=== PATIENT | male | born 1990 | race Caucasian/White ===

== ENCOUNTER 2018-07-16 13:57 | Inpatient (IN) ==
[2018-07-16] MEDS ORDERED: Naloxone 0.4 MG/ML INJ IVP PRN (16:42)
--- NOTE | 2018-07-16 16:55 | Internal Med History&Physical ---
Date of Encounter: 07/16/18 Time of Encounter: 16:52 Internal Medicine - H&P: HPI Chief complaint: Shortness of breath Admitted From: Emergency Dept History of present illness: Mr. MISTRY is a 27 year old male patient with no significant past medical history who went to the ER at [facility] with complaints of shortness of breath along with worsening cough. He reports that symptoms have been going on for a week but became more prominent over the past couple of days. He denies any fevers or chills. He has some chest pain due to frequent coughing. He does have some phlegm. No hemoptysis. No prior episodes of hospitalization. Brendan navas is a chronic smoker. He does not have any sick contacts but his father has chronic sinusitis. In the ER, he was noted to be persistently hypoxic. As such he was transferred here for further evaluation. Past Med Surg Social Fam HX - Past Medical History Additional medical history: smoker Psychiatric history: no psych history - Past Surgical History Surgical History: no surgical history - Social History Smoking Status: Current every day smoker Packs per day: 1/2 Smokeless Tobacco Status: No Alcohol use: none Drug use: none - Additional Family History Additional family history: Family history reviewed and found to be noncontributory at this time All Systems PM: A 10-system review of systems was performed and is negative for pertinent findings except as documented above in the HPI. - Constitutional Constitutional: lethargy, malaise, no chills, no fever(s), no night sweats - EENT Eyes: no change in vision, no discharge, no pain, no photophobia Ears: no ear discharge, no ear pain, no tinnitus Nose, mouth and throat: no dysphagia, no nasal discharge, no neck pain, no sore throat - Cardiovascular Cardiovascular ROS IM: dyspnea, no chest pain, no diaphoresis, no lightheadedness, no palpitations, no syncope - Respiratory Respiratory: cough, dyspnea, no wheezing, no excessive phlegm production - Gastrointestinal Gastrointestinal: no abdominal pain, no diarrhea, no hematemesis, no hematochezia, no melena, no nausea, no vomiting - Musculoskeletal Musculoskeletal ROS IM: no numbness, no tingling - Integumentary Integumentary IM: no rash, no unusual bruising - Neurological Neurological ROS: no confusion, no convulsions, no focal weakness, no numbness, no tingling, no tremor(s) - Hematologic/Lymphatic Hematologic/Lymphatic: no easy bruising - Constitutional Vitals: Pulse Resp BP Pulse Ox 88 18 143/86 95 07/16/18 15:46 07/16/18 15:46 07/16/18 15:46 07/16/18 16:01 General appearance: Present: cooperative, A&O X 3, pleasant, answers questions appropriately Exam: Moderate distress - Respiratory Respiratory exam: Present: prolonged expiratory phase, wheezes. Absent: accessory muscle use, rales, rhonchi - Cardiovascular Cardiovascular exam: Present: RRR, +S1, +S2. Absent: diastolic murmur, gallop, rubs, systolic murmur - GI/Abdominal GI/Abdominal exam: Present: normal bowel sounds, soft, no peritoneal signs. Absent: distended, tenderness - Extremities Exam Extremities exam: Present: warm, radial pulses palpable and symmetrical. Absent: calf tenderness, cyanotic, pedal edema - Neurological Exam Neurological exam: Present: alert, oriented X3, no focal deficits. Absent: facial droop, speech deficit Internal Med - H&P Results - Labs Labs: Sodium 139 potassium 3.9 chloride 103, bicarbonate 27, BUNs and 14, creatinine 1.09, glucose 138 WBC 11.3, hemoglobin 16.5, platelets 279 - ABG Interpretation ABG results: PH 7.46, PCO2 34, PO2 53 Interpretation: respiratory alkalosis - EKG Data -: EKG Interpreted by Myself EKG shows normal: sinus rhythm - Impressions Reviewed CT angiogram. Patient has bilateral groundglass opacities but more prominent consolidation in the right lower lobe concerning for atypical pneumonia - Assessment and Plan (1) Acute respiratory failure with hypoxia Current Visit: Yes Status: Acute Assessment and plan: Patient with acute hypoxia. Due to COPD exacerbation and atypical pneumonia. Will treat with O2 supplementation while treating underlying causes of pneumonia. (2) Pneumonia Current Visit: Yes Status: Suspected Assessment and plan: CT angiogram does show right lower lobe infiltrate. No PE. We will treat with antibiotics. Check respiratory infection panel. Check Legionella, Mycoplasma and streptococcal antigens. High risk for complications. Qualifiers: Pneumonia type: due to Pneumococcus Laterality: right Lung location: lower lobe of lung Qualified Code(s): J13 - Pneumonia due to Streptococcus pneumoniae (3) COPD exacerbation Current Visit: Yes Status: Acute Assessment and plan: No previous history of COPD but patient is a chronic smoker. Will treat him for possible COPD exacerbation as he has bilateral wheezing. IV steroids, bronchodilators. O2 supplementation. (4) Tobacco abuse Current Visit: Yes Status: Chronic Assessment and plan: Chronic tobacco abuse. Counseled about cessation. Patient is willing to quit. - Time Spent With Patient Total time spent is greater than 50% in coordination of care (as documented) at patient's floor/unit and/or counseling patient:
[2018-07-16] MEDS ORDERED: Ipratropium/Albuterol Neb 3 ML ONE (16:56)
[2018-07-16] MEDS: Ipratropium/Albuterol Neb 3 ML IH SCH ×3 (17:04→23:58)
[2018-07-16] MEDS ORDERED: Furosemide 20 MG/2 ML VIAL IVP ONE (17:36)
[2018-07-16] MEDS ORDERED: Ringers Solution, Lactated 1,000 ML IVC SCH (17:45)
[2018-07-16] MEDS ORDERED: 0.9 % Sodium Chloride Mini Bag 100 ML ONE (18:24)
[2018-07-16] MEDS: MethylPREDNISolone 40 MG/ML VIAL IVP SCH (18:27)
[2018-07-16] MEDS: Doxycycline 100 MG in 0.9 % Sodium Chloride Mini Bag 100 ML IVPB SCH (18:27)
[2018-07-16] MEDS: cefTRIAXone 2,000 MG in 0.9 % Sodium Chloride Mini Bag 100 ML IVPB SCH (18:28)
[2018-07-16 18:41] LABS: Adenovirus Not Detected (Not Detect); Bordetella Pertussis Not Detected (Not Detect); Chlamydophila pneumoniae Not Detected (Not Detect); Coronavirus 229E Not Detected (Not Detect); Coronavirus HKU1 Not Detected (Not Detect); Coronavirus NL63 Not Detected (Not Detect); Coronavirus OC43 DETECTED (Not Detect); Human Metapneumovirus Not Detected (Not Detect); Human Rhinovirus/Enterovirus Not Detected (Not Detect); Influenza A Subtype 2009 H1 Not Detected (Not Detect); Influenza A Untypeable Not Detected (Not Detect); Influenza B Not Detected (Not Detect); Mycoplasma pneumoniae Not Detected (Not Detect); Parainfluenza Virus 1 Not Detected (Not Detect); Parainfluenza Virus 2 Not Detected (Not Detect); Parainfluenza Virus 3 Not Detected (Not Detect); Parainfluenza Virus 4 Not Detected (Not Detect); Respiratory Syncytial Virus Not Detected (Not Detect)
--- NOTE | 2018-07-16 18:44 | Pulmonology Consult Note ---
Date of Encounter: 07/16/18 Time of Encounter: 17:00 Assessment and Plan (1) Acute respiratory failure with hypoxia Current Visit: Yes Status: Acute Patient presenting with acute respiratory failure with hypoxia pulmonary embolism was ruled out patient has a subtle groundglass opacities differential diagnosis can be due to congestive heart failure which is very unlikely, most likely cause would be atypical bacterial pneumonia versus viral pneumonia. The low likelihood causes like inflammatory pneumonias like acute eosinophilic pneumonia does not look like the pattern in the CT chest. We will do an atypical/viral workup. Patient might have small airway disease because of chronic smoking will put him on bronchodilators steroids and atypical antibiotic coverage. (2) COPD exacerbation Current Visit: Yes Status: Acute Patient has not been evaluated formally for COPD but there was some subtle air- trapping and CT chest was likely early stage with small airway disease. We will treat her COPD exacerbation with bronchodilators steroids and antibiotics. We will try a small dose of Lasix. To trend troponins and check BNP. (3) Tobacco abuse Current Visit: Yes Status: Chronic Counseled about the importance of smoking cessation some the smoking in induce interstitial lung disease like the desquamative . interstitial pneumonitis can present like this (4) Pneumonia Current Visit: Yes Status: Suspected Patient has exposure to rabbits highly doubt it is rapid fever it can cause pneumonia with a subtle groundglass opacities highly doubt it but will cover for atypical coverage with doxycycline and ceftriaxone. We will put him on steroids will do an atypical workup. If the BNP is high we will check an echocardiogram. Qualifiers: Pneumonia type: due to Pneumococcus Laterality: right Lung location: lower lobe of lung Qualified Code(s): J13 - Pneumonia due to Streptococcus pneumoniae History of Present Illness Consult date: 07/16/18 Requesting physician: Jamey Mccabe Chief complaint: Shortness of breath History of present illness: 27-year-old male with past medical history nothing significant except for chronic smoking is been smoking for 5 years according to him patient never been in shortness of breath previously is all started after exposure to a sick contact with father in law progressive shortness of breath he was evaluated in the [facility] ruled out for pulmonary embolism I reviewed the CT chest had some subtle groundglass opacities no evidence of consolidation no evidence some in any interstitial pattern, no radiological evidence suggestive of sarcoidosis or any organizing pneumonia or any hypersensitivity pneumonitis patient Except for smoking denies any illicit drug abuse denies any snorting cocaine or other substances patient is not exposed to exotic birds but has a pet rabbit. Patient also not exposed to any formal animals denies any exposed to any mold in the house. Patient works in [employer]. No significant work exposure. Patient denies any symptoms pertaining to any rheumatological disorder. Patient is profoundly hypoxic requiring 10 L of nasal cannula to keep saturation around 91-92%. Pulmonary was consulted for evaluation of acute hypoxic respiratory failure Past Med Surg Social Fam HX - Past Medical History Additional medical history: smoker Psychiatric history: no psych history - Past Surgical History Surgical History: no surgical history - Social History Smoking Status: Current every day smoker Packs per day: 1/2 Smokeless Tobacco Status: No Alcohol use: none Drug use: none Medications and Allergies Allergy/AdvReac Type Severity Reaction Status Date / Time No Known Allergies Allergy Verified 07/16/18 17:31 All Systems: The remainder of the systems were reviewed and are negative Physical Examination Vital Signs: Vital Signs, Last 4 Hours Pulse Resp BP Pulse Ox 07/16/18 17:04 16 91 07/16/18 16:01 95 07/16/18 15:46 88 18 143/86 90 General appearance: other (In respiratory distress) Effort: mildly labored Auscultation: bilateral: wheezes, rales Extremities: no edema Musculoskeletal: no deformities Gait: normal gait normal mental status, non-focal exam mood appropriate Results - Laboratory Findings Abnormal lab findings: Abnormal lab results Coronavirus OC43 (PCR) DETECTED (Not Detect) A 07/16/18 17:45 - Clinical Findings Intake & Output: Intake & Output 07/16/18 07/16/18 07/16/18 07:59 15:59 23:59 Intake Total 120 / 120 Balance 120 / 120 Weight 134.717 kg
[2018-07-16] MEDS: Hydrocortisone 1% OINT 28 GM TUBE TP SCH (20:55)
[2018-07-16 22:57] LABS: ABG Base Excess -1 mEq/L (-2 to 3); ABG HCO3 23 mEq/L (21-27); ABG Oxygen Saturation 87 % (95-98); ABG PCO2 35 mmHg (35-45); ABG PH 7.42 pH Units (7.32-7.45); ABG PO2 52 mmHg (85-104); ABG TCO2 24 mEq/L (20-26)
[2018-07-17] MEDS: MethylPREDNISolone 40 MG/ML VIAL IVP SCH ×3 (02:43→16:47)
[2018-07-17] MEDS: Ipratropium/Albuterol Neb 3 ML IH SCH ×6 (04:38→23:55)
[2018-07-17] MEDS: Doxycycline 100 MG in 0.9 % Sodium Chloride Mini Bag 100 ML IVPB SCH ×2 (05:14→17:39)
[2018-07-17] MEDS: Hydrocortisone 1% OINT 28 GM TUBE TP SCH ×2 (09:12→21:16)
[2018-07-17 11:25] LABS: Basophils % 0.1 %; Eosinophils % 0.1 %; Hematocrit 48.3 % (37.5-50.1); Hemoglobin 16.2 g/dL (12.9-16.9); Immature Granulocytes % 0.6 % (0-4); Mean Corpuscular HGB Conc 33.5 g/dL (31.6-35.5); Mean Corpuscular Hemoglobin 29.1 pg (28.0-33.3); Mean Corpuscular Volume 86.7 fL (83.0-100.0); Mean Platelet Volume 10.1 fL (9.4-12.4); Monocytes # 0.5 K/mcL (0.0-1.3); Monocytes % 2.8 %; Neutrophils # 17.9 K/mcL (1.6-8.9); Platelet Count 316 K/mcL (140-400); Red Blood Count 5.57 M/mcL (4.19-5.50); Red Cell Distribution Width 13.6 % (11.5-14.5); Segmented Neutrophils % 91.4 %
--- NOTE | 2018-07-17 11:25 | Pulmonology Progress Note ---
Date of Encounter: 07/17/18 Time of Encounter: 08:00 Assessment and Plan (1) Acute respiratory failure with hypoxia Current Visit: Yes Status: Acute Patient acute hypoxic respiratory failure secondary to coronavirus pneumonia complicating small airway disease/COPD exacerbation (2) COPD exacerbation Current Visit: Yes Status: Acute Continue scheduled bronchodilators, steroids, antibiotics. Patient will need a prolonged steroid taper over 2 weeks (3) Tobacco abuse Current Visit: Yes Status: Chronic Patient has decided to quit smoking. (4) Pneumonia Current Visit: Yes Status: Acute Patient had coronavirus infection with possible secondary bacterial pneumonia to cover with current regimen of antibiotics. Qualifiers: Pneumonia type: due to unspecified organism Laterality: right Lung location: lower lobe of lung Qualified Code(s): J18.1 - Lobar pneumonia, unspecified organism Subjective Principal diagnosis: viral pneumonia Interval history: Patient smoker with possible small airway disease with CT chest shows some trapping comes with bilateral groundglass opacities secondary to coronavirus pneumonia with possible superinfection with bacterial pneumonia with acute hypoxic respiratory failure patient is responding well to antibiotics and steroid therapy. Objective PUL Vital signs: Last Vital Signs Temp 98.0 F 07/17/18 07:48 Pulse 91 07/17/18 07:48 Resp 16 07/17/18 08:46 BP 134/86 07/17/18 07:48 Pulse Ox 92 07/17/18 08:46 General appearance: no acute distress Effort: mildly labored Auscultation: bilateral: wheezes Cardiovascular: regular rate and rhythm Gastrointestinal: normoactive bowel sounds Musculoskeletal: no deformities normal mental status, non-focal exam mood appropriate Results - Laboratory Findings CBC and BMP: 07/17/18 10:50 07/17/18 10:50 ABG ABG pH 7.42 pH Units (7.32-7.45) 07/16/18 22:54 ABG pCO2 35 mmHg (35-45) 07/16/18 22:54 ABG pO2 52 mmHg (85-104) L 07/16/18 22:54 ABG O2 Saturation 87 % (95-98) L 07/16/18 22:54 Abnormal lab findings: Abnormal lab results ABG pO2 52 mmHg (85-104) L 07/16/18 22:54 ABG O2 Saturation 87 % (95-98) L 07/16/18 22:54 Coronavirus OC43 (PCR) DETECTED (Not Detect) A 07/16/18 17:45 - Clinical Findings Intake & Output: Intake & Output 07/16/18 07/17/18 07/17/18 23:59 07:59 15:59 Intake Total 320 / 320 360 / 360 Output Total 700 / 700 600 / 600 Balance -380 / -380 -240 / -240 Weight 134.717 kg 138.3 kg Consult Discharge Plan - Plan Referrals: NONE,PCP [Primary Care Provider] -
[2018-07-17 11:42] LABS: BUN/Creatinine Ratio 19 (6-26); Blood Urea Nitrogen 17 mg/dL (6-20); Calcium 9.5 mg/dL (8.6-10.3); Carbon Dioxide 24 mEq/L (23-29); Chloride 103 mEq/L (98-107); Glucose 247 mg/dL (70-105); Magnesium 1.9 mg/dL (1.6-2.6); Osmolality,Calculated 294 (280-300); Potassium 3.6 mEq/L (3.5-5.1); Sodium 137 mEq/L (136-145); eGFR For Non-African Americans > 60 (> 60)
--- NOTE | 2018-07-17 15:07 | Internal Med Progress Note ---
Hospitalist Progress Note - Encounter Date of Encounter: 07/17/18 Time of Encounter: 11:20 - Subjective Interval History: Patient doing much better today. Denies any chest pain or palpitations at this time. Tolerating oral diet. Does remain on high flow nasal cannula. No episodes of fever reported overnight. - Exam Vitals: Temp Pulse Resp BP Pulse Ox 98.2 F 104 20 147/87 94 07/17/18 11:30 07/17/18 11:30 07/17/18 11:51 07/17/18 11:30 07/17/18 11:51 Exam: General: Patient is alert, no acute distress, oriented x 3 ENT: Mucous membranes moist Respiratory: Improved air entry bilaterally. Mild wheezing and rhonchi. Significantly improved.. Cardiovascular: Regular rate and rhythm. s1 and s2 normal No clicks, rubs, gallops, or murmurs. No pedal edema Abdomen: Abdomen is soft, nontender. Bowel sounds are present Musculoskeletal: Spontaneously moving all extremities Skin: warm, dry, intact. Neuro: Alert oriented x 3 normal cranial nerves, no focal deficits - Assessment and Plan (1) Acute respiratory failure with hypoxia Current Visit: Yes Status: Acute Assessment and Plan: Continue O2 supplementation. Incentive spirometry. Wean FiO2 as tolerated. (2) Pneumonia Current Visit: Yes Status: Acute Assessment and Plan: Respiratory infection panel positive for coronavirus. Patient may have superimposed bacterial infection. Continue antibiotics while testing is pending. (3) COPD exacerbation Current Visit: Yes Status: Acute Assessment and Plan: Continue bronchodilators and steroids. O2 supplementation to keep sats greater than 88%. He will need follow-up with pulmonology for pulmonary function testings after discharge. (4) Tobacco abuse Current Visit: Yes Status: Chronic Assessment and Plan: Patient has been counseled about cessation. Willing to quit. DVT Prophylaxis: Will place patient on subcutaneous heparin - Time Spent with Patient Total time spent is greater than 50% in coordination of care (as documented) at patient's floor/unit and/or counseling patient: Internal Medicine: Result - Labs CBC & Chem 7: 07/17/18 10:50 07/17/18 10:50 Labs: Short CBC 07/17/18 Range/Units 10:50 WBC 19.6 H (4.3-11.1) K/mcL Hgb 16.2 (12.9-16.9) g/dL Hct 48.3 (37.5-50.1) % Plt Count 316 (140-400) K/mcL Neutrophils # 17.9 H (1.6-8.9) K/mcL BMP 07/17/18 10:50 Sodium 137 Potassium 3.6 Chloride 103 Carbon Dioxide 24 BUN 17 Creatinine 0.90 Glucose 247 H Calcium 9.5 Cardiac Enzymes 07/16/18 Range/Units 19:06 Troponin I < 0.03 (< 0.04) ng/mL - ABG Interpretation ABG results: ABG ABG pH 7.42 pH Units (7.32-7.45) 07/16/18 22:54 ABG pCO2 35 mmHg (35-45) 07/16/18 22:54 ABG pO2 52 mmHg (85-104) L 07/16/18 22:54 ABG O2 Saturation 87 % (95-98) L 07/16/18 22:54 Consult Discharge Plan - Plan Referrals: NONE,PCP [Primary Care Provider] - (2) Pneumonia Qualifiers: Pneumonia type: due to unspecified organism Laterality: right Lung location: lower lobe of lung Qualified Code(s): J18.1 - Lobar pneumonia, unspecified organism
[2018-07-17] MEDS ORDERED: Menthol 9.1 MG LOZENGE PO PRN (15:47)
[2018-07-17] MEDS ORDERED: 0.9 % Sodium Chloride Mini Bag 100 ML ONE (16:30)
[2018-07-17] MEDS: cefTRIAXone 2,000 MG in 0.9 % Sodium Chloride Mini Bag 100 ML IVPB SCH (16:38)
[2018-07-17] MEDS: Nicotine 21 MG PATCH.TD24 TD PRN (17:01)
[2018-07-17] MEDS: *HR* Heparin 5,000 UNIT/ML VIAL SQ SCH (17:42)
[2018-07-18] MEDS: MethylPREDNISolone 40 MG/ML VIAL IVP SCH ×2 (01:26→11:00)
[2018-07-18] MEDS: Ipratropium/Albuterol Neb 3 ML IH SCH ×6 (03:44→23:35)
[2018-07-18 06:15] LABS: BUN/Creatinine Ratio 24 (6-26); Blood Urea Nitrogen 17 mg/dL (6-20); Calcium 9.2 mg/dL (8.6-10.3); Carbon Dioxide 27 mEq/L (23-29); Chloride 103 mEq/L (98-107); Glucose 166 mg/dL (70-105); Osmolality,Calculated 293 (280-300); Potassium 4.1 mEq/L (3.5-5.1); Sodium 139 mEq/L (136-145); eGFR For Non-African Americans > 60 (> 60)
[2018-07-18 06:25] LABS: Basophils % 0.1 %; Hematocrit 44.2 % (37.5-50.1); Hemoglobin 14.8 g/dL (12.9-16.9); Immature Granulocytes % 0.5 % (0-4); Lymphocytes # 1.5 K/mcL (0.6-4.6); Lymphocytes % 7.5 %; Mean Corpuscular HGB Conc 33.5 g/dL (31.6-35.5); Mean Corpuscular Hemoglobin 29.1 pg (28.0-33.3); Mean Corpuscular Volume 86.8 fL (83.0-100.0); Mean Platelet Volume 10.2 fL (9.4-12.4); Monocytes % 5.3 %; Neutrophils # 16.7 K/mcL (1.6-8.9); Platelet Count 292 K/mcL (140-400); Red Blood Count 5.09 M/mcL (4.19-5.50); Red Cell Distribution Width 13.9 % (11.5-14.5); Segmented Neutrophils % 86.6 %
[2018-07-18] MEDS: Doxycycline 100 MG in 0.9 % Sodium Chloride Mini Bag 100 ML IVPB SCH ×2 (06:31→17:41)
[2018-07-18] MEDS: *HR* Heparin 5,000 UNIT/ML VIAL SQ SCH ×2 (06:31→17:39)
[2018-07-18] MEDS: Hydrocortisone 1% OINT 28 GM TUBE TP SCH ×2 (10:21→20:37)
--- NOTE | 2018-07-18 11:03 | Pulmonology Progress Note ---
Date of Encounter: 07/18/18 Time of Encounter: 09:00 Assessment and Plan (1) Acute respiratory failure with hypoxia Current Visit: Yes Status: Acute Patient acute hypoxic respiratory failure secondary to coronavirus pneumonia complicating small airway disease/COPD exacerbation. Pulmonary embolism was ruled out and [facility] CTA was done there and it was uploaded in our PACS system. (2) COPD exacerbation Current Visit: Yes Status: Acute Continue scheduled bronchodilators, steroids, antibiotics. Patient will need a prolonged steroid taper over 2 weeks. Patient relates short-acting bronchodilators and discharged. De-escalate antibiotics according to clinical response. (3) Tobacco abuse Current Visit: Yes Status: Chronic Patient has decided to quit smoking. (4) Pneumonia Current Visit: Yes Status: Acute Patient had coronavirus infection with possible secondary bacterial pneumonia to cover with current regimen of antibiotics. To de-escalate antibiotics according to response. Qualifiers: Pneumonia type: due to unspecified organism Laterality: right Lung loca tion: lower lobe of lung Qualified Code(s): J18.1 - Lobar pneumonia, unspecified organism Subjective Principal diagnosis: viral pneumonia Interval history: Patient smoker with possible small airway disease with CT chest shows some trapping comes with bilateral groundglass opacities secondary to coronavirus pneumonia with possible superinfection with bacterial pneumonia with acute hypoxic respiratory failure patient is responding well to antibiotics and steroid therapy. 07/18 patient did not have an any acute events overnight. Patient denies any chest pain chest tightness denies any palpitation or syncope. Patient shortness of breath is getting better responding well to current treatment. Objective PUL Vital signs: Last Vital Signs Temp 97.6 F 07/18/18 07:36 Pulse 62 07/18/18 07:36 Resp 23 07/18/18 07:47 BP 136/79 07/18/18 07:36 Pulse Ox 97 07/18/18 07:47 Eyes: nonicteric ENT: oropharynx moist Neck: no lymphadenopathy Effort: mildly labored Auscultation: bilateral: wheezes Cardiovascular: regular rate and rhythm Gastrointestinal: normoactive bowel sounds Musculoskeletal: no deformities Gait: other normal mental status, non-focal exam Results - Laboratory Findings CBC and BMP: 07/18/18 05:21 07/18/18 05:21 ABG ABG pH 7.42 pH Units (7.32-7.45) 07/16/18 22:54 ABG pCO2 35 mmHg (35-45) 07/16/18 22:54 ABG pO2 52 mmHg (85-104) L 07/16/18 22:54 ABG O2 Saturation 87 % (95-98) L 07/16/18 22:54 Abnormal lab findings: Abnormal lab results WBC 19.2 K/mcL (4.3-11.1) H 07/18/18 05:21 Neutrophils # 16.7 K/mcL (1.6-8.9) H 07/18/18 05:21 ABG pO2 52 mmHg (85-104) L 07/16/18 22:54 ABG O2 Saturation 87 % (95-98) L 07/16/18 22:54 Glucose 166 mg/dL (70-105) H 07/18/18 05:21 Coronavirus OC43 (PCR) DETECTED (Not Detect) A 07/16/18 17:45 - Microbiology Findings Microbiology Findings: Microbiology, Last 48 Hours 07/17/18 21:45 Streptococcus pneumoniae Antigen (M - Final Urine,Clean Catch 07/17/18 21:45 Legionella Antigen - Final Urine,Clean Catch - Clinical Findings Intake & Output: Intake & Output 07/17/18 07/18/18 07/18/18 23:59 07:59 15:59 Intake Total 340 / 340 240 / 240 Output Total 350 / 350 600 / 600 Balance -10 / -10 -360 / -360 Weight 137.8 kg Consult Discharge Plan - Plan Referrals: NONE,PCP [Primary Care Provider] - Emory Sue MD [Partnered Physician] - (Web request 07/18/2018)
--- NOTE | 2018-07-18 15:03 | Internal Med Progress Note ---
Hospitalist Progress Note - Encounter Date of Encounter: 07/18/18 Time of Encounter: 09:25 - Subjective Interval History: Patient feels like he is getting better. Continues to have some cough. Remains on 7 L O2 supplementation. Denies any fevers or chills overnight. - Exam Vitals: Temp Pulse Resp BP Pulse Ox 97.6 F 62 23 136/79 97 07/18/18 07:36 07/18/18 07:36 07/18/18 07:47 07/18/18 07:36 07/18/18 07:47 Exam: General: Patient is alert, no acute distress, oriented x 3 ENT: Mucous membranes moist Respiratory: Prolonged expiratory phase. Mild wheezing bilaterally. Cardiovascular: Regular rate and rhythm. s1 and s2 normal No clicks, rubs, gallops, or murmurs. No pedal edema Abdomen: Abdomen is soft, nontender. Bowel sounds are present Musculoskeletal: Spontaneously moving all extremities Skin: warm, dry, intact. Neuro: Alert oriented x 3 normal cranial nerves, no focal deficits - Assessment and Plan (1) Acute respiratory failure with hypoxia Current Visit: Yes Status: Acute Assessment and Plan: Continue O2 supplementation. Patient is currently on 7 L high flow nasal cannula. We will continue to wean FiO2 as tolerated. Incentive spirometry. (2) Pneumonia Current Visit: Yes Status: Acute Assessment and Plan: Respiratory infection panel positive for coronary where his. Treating patient for possible superimposed bacterial infection due to infiltrative changes on the CT scan. Continue current antibiotics. Cardiology recommendations appreciated. (3) COPD exacerbation Current Visit: Yes Status: Acute Assessment and Plan: Continue bronchodilators, systemic steroids. Will transition to oral prednisone. (4) Tobacco abuse Current Visit: Yes Status: Chronic Assessment and Plan: On nicotine patch. - Time Spent with Patient Total time spent is greater than 50% in coordination of care (as documented) at patient's floor/unit and/or counseling patient: Internal Medicine: Result - Labs CBC & Chem 7: 07/18/18 05:21 07/18/18 05:21 Labs: Short CBC 07/18/18 Range/Units 05:21 WBC 19.2 H (4.3-11.1) K/mcL Hgb 14.8 (12.9-16.9) g/dL Hct 44.2 (37.5-50.1) % Plt Count 292 (140-400) K/mcL Neutrophils # 16.7 H (1.6-8.9) K/mcL BMP 07/18/18 05:21 Sodium 139 Potassium 4.1 Chloride 103 Carbon Dioxide 27 BUN 17 Creatinine 0.72 Glucose 166 H Calcium 9.2 - ABG Interpretation ABG results: ABG ABG pH 7.42 pH Units (7.32-7.45) 07/16/18 22:54 ABG pCO2 35 mmHg (35-45) 07/16/18 22:54 ABG pO2 52 mmHg (85-104) L 07/16/18 22:54 ABG O2 Saturation 87 % (95-98) L 07/16/18 22:54 Consult Discharge Plan - Plan Referrals: NONE,PCP [Primary Care Provider] - (2) Pneumonia Qualifiers: Pneumonia type: due to unspecified organism Laterality: right Lung location: lower lobe of lung Qualified Code(s): J18.1 - Lobar pneumonia, unspecified organism
[2018-07-18] MEDS ORDERED: MethylPREDNISolone 40 MG/ML VIAL IVP SCH (16:00)
[2018-07-18] MEDS: cefTRIAXone 2,000 MG in 0.9 % Sodium Chloride Mini Bag 100 ML IVPB SCH (16:29)
[2018-07-18] MEDS: Nicotine 21 MG PATCH.TD24 TD PRN (16:39)
[2018-07-19] MEDS: Ipratropium/Albuterol Neb 3 ML IH SCH ×3 (03:42→11:58)
[2018-07-19] MEDS: Doxycycline 100 MG in 0.9 % Sodium Chloride Mini Bag 100 ML IVPB SCH (05:48)
[2018-07-19] MEDS: *HR* Heparin 5,000 UNIT/ML VIAL SQ SCH (05:49)
[2018-07-19 05:52] LABS: Basophils % 0.1 %; Eosinophils % 0.1 %; Hematocrit 44.1 % (37.5-50.1); Hemoglobin 14.6 g/dL (12.9-16.9); Immature Granulocytes % 0.6 % (0-4); Lymphocytes # 2.7 K/mcL (0.6-4.6); Lymphocytes % 16.1 %; Mean Corpuscular HGB Conc 33.1 g/dL (31.6-35.5); Mean Corpuscular Volume 87.7 fL (83.0-100.0); Mean Platelet Volume 10.1 fL (9.4-12.4); Monocytes # 1.2 K/mcL (0.0-1.3); Neutrophils # 12.5 K/mcL (1.6-8.9); Platelet Count 275 K/mcL (140-400); Red Blood Count 5.03 M/mcL (4.19-5.50); Red Cell Distribution Width 14.2 % (11.5-14.5); Segmented Neutrophils % 76.1 %
--- NOTE | 2018-07-19 06:39 | Pulmonology Progress Note ---
Date of Encounter: 07/19/18 Time of Encounter: 06:39 Assessment and Plan (1) Pneumonia Current Visit: Yes Status: Acute Patient has viral pneumonia with bronchiolitis His currently on ceftriaxone and doxycycline. Can likely stop ceftriaxone complete 5 days of doxycycline Repeat CT scan in 4-6 weeks to demonstrate resolution Do not hesitate to call me with any questions or concerns Scott Sarah [phone] Qualifiers: Pneumonia type: due to unspecified organism Laterality: right Lung location: lower lobe of lung Qualified Code(s): J18.1 - Lobar pneumonia, unspecified organism (2) Acute respiratory failure with hypoxia Current Visit: Yes Status: Acute FiO2 requirements are coming down. Wean FiO2 to keep saturation greater than 88% Walking pulse oximetry prior to discharge (3) COPD exacerbation Current Visit: Yes Status: Acute Transition to oral glucocorticoids 40 mg of prednisone to complete two-week taper Start Symbicort 160/4.5 at the time of discharge she will need 2 puffs twice daily and can follow-up in pulmonary clinic (4) Tobacco abuse Current Visit: Yes Status: Chronic Tobacco cessation counseling given Subjective Principal diagnosis: viral pneumonia Interval history: Mr. Ascencio continues to improve. He is almost been weaned off nasal cannula O2 entirely. He says his breathing much better. He is looking forward to getting home before too long Objective PUL Vital signs: Last Vital Signs Temp 97.3 F L 07/19/18 03:57 Pulse 80 07/19/18 03:57 Resp 18 07/19/18 03:57 BP 124/96 07/19/18 03:57 Pulse Ox 96 07/19/18 03:57 General appearance: no acute distress Eyes: nonicteric Mallampati (class): 4 Neck: supple Effort: normal Auscultation: bilateral: wheezes (Faint expiratory wheezes noted) Cardiovascular: regular rate and rhythm Gastrointestinal: normoactive bowel sounds, soft, non-tender Integumentary: normal Extremities: no cyanosis, no edema, no clubbing Musculoskeletal: no deformities normal mental status, non-focal exam mood appropriate Results - Laboratory Findings CBC and BMP: 07/19/18 05:12 07/18/18 05:21 ABG ABG pH 7.42 pH Units (7.32-7.45) 07/16/18 22:54 ABG pCO2 35 mmHg (35-45) 07/16/18 22:54 ABG pO2 52 mmHg (85-104) L 07/16/18 22:54 ABG O2 Saturation 87 % (95-98) L 07/16/18 22:54 Abnormal lab findings: Abnormal lab results WBC 16.5 K/mcL (4.3-11.1) H 07/19/18 05:12 Neutrophils # 12.5 K/mcL (1.6-8.9) H 07/19/18 05:12 ABG pO2 52 mmHg (85-104) L 07/16/18 22:54 ABG O2 Saturation 87 % (95-98) L 07/16/18 22:54 Glucose 166 mg/dL (70-105) H 07/18/18 05:21 Coronavirus OC43 (PCR) DETECTED (Not Detect) A 07/16/18 17:45 - Microbiology Findings Microbiology Findings: Microbiology, Last 48 Hours 07/17/18 21:45 Streptococcus pneumoniae Antigen (M - Final Urine,Clean Catch 07/17/18 21:45 Legionella Antigen - Final Urine,Clean Catch - Diagnostic Findings Chest x-ray: report reviewed, image reviewed CT scan - chest: report reviewed, image reviewed - Clinical Findings Intake & Output: Intake & Output 07/18/18 07/18/18 07/19/18 15:59 23:59 07:59 Intake Total 490 / 490 0 / 0 100 / 100 Output Total 600 / 600 0 / 0 0 / 0 Balance -110 / -110 0 / 0 100 / 100 Weight 142.5 kg Consult Discharge Plan - Plan Instructions: Acute Respiratory Distress Syndrome (DC), Chronic Obstructive Pulmonary Disease (DC), Pneumonia (DC) Additional Instructions: Complete a total of 7 days of abx and steroid taper as prescribed Follow up with pulm as outpatient Referrals: NONE,PCP [Primary Care Provider] - Emory Sue MD [Partnered Physician] - (Web request 07/18/2018) Prescriptions: GuaiFENesin/Dextromethorphan [Robitussin/Dm] 10 ml PO Q6HR PRN #30 udc PRN Reason: Cough Albuterol Sulfate [Albuterol Inhaler] 1 puff IH Q4H PRN #1 inhaler PRN Reason: Shortness Of Breath Amoxicillin/Clavulanate [Augmentin] 875 mg PO BIDWM 3 Days #6 tablet Nicotine Patch [Nicoderm] 21 mg TD DAILY PRN #21 patch.[email or web address] PRN Reason: Tobacco cessation predniSONE [PredniSONE] 40 mg PO DAILY #12 tablet
[2018-07-19] MEDS: Hydrocortisone 1% OINT 28 GM TUBE TP SCH (08:54)
[2018-07-19] MEDS ORDERED: cefTRIAXone 2,000 MG in Water for inj. (sterile) 20 ML 20 ML IVP SCH (09:00)
[2018-07-19] MEDS ORDERED: predniSONE 20 MG TABLET PO SCH (09:00)
[2018-07-19 11:06] LABS: Mycoplasma pneumoniae IgG 0.67 U/L (<=0.09)
[2018-07-19 11:10] LABS: ANA IgG by ELISA NONE DETECTED (None Detected)
--- NOTE | 2018-07-19 11:18 | Discharge Summary ---
- NOTES TO OUTPATIENT PROVIDER Notes to Outpatient Provider: Outpatient PFT and sleep study Orders not resulted at time of discharge: Pending orders 07/17/18 10:50 Histoplasma Antigen AM 0400 07/19/18 07:16 Basic Metabolic Panel Routine Date of Encounter: 07/19/18 Time of Encounter: 07:30 - Discharge Diagnosis (1) Acute respiratory failure with hypoxia Priority: Primary Status: Acute (2) COPD exacerbation Priority: Secondary Status: Acute (3) Tobacco abuse Priority: Secondary Status: Chronic (4) Pneumonia Priority: Secondary Status: Acute Qualifiers: Pneumonia type: due to unspecified organism Laterality: right Lung location: lower lobe of lung Qualified Code(s): J18.1 - Lobar pneumonia, unspecified organism Hospital course: Mr. Ascencio is a 27 year old male with morbid obesity was admitted for acute hypoxic respiratory failure secondary to viral/bacterial pneumonia complicated by asthma/COPD exacerbation. Coronavirus +ve. REquired as high as 12L of O2 during his stay but improved to room air at the time of discharge. Did not qualify for home O2. He will be discharged on 2 week steroid taper per pulm, a total of 7 days of abx, and short acting bronchodilators. He will need outpatient PFT and sleep study as well as pulmonary follow up. Discharge discussed with: patient, family, nurse - Time Spent with Patient Total time spent providing and/or coordinating discharge services: 31 - Discharge Medications Prescriptions: New GuaiFENesin/Dextromethorphan [Robitussin/Dm] 10 ml PO Q6HR PRN #30 udc PRN Reason: Cough Albuterol Sulfate [Albuterol Inhaler] 1 puff IH Q4H PRN #1 inhaler PRN Reason: Shortness Of Breath Amoxicillin/Clavulanate [Augmentin] 875 mg PO BIDWM 3 Days #6 tablet Nicotine Patch [Nicoderm] 21 mg TD DAILY PRN #21 patch.[email or web address] PRN Reason: Tobacco cessation predniSONE [PredniSONE] 40 mg PO DAILY #12 tablet Home Medications: Albuterol Sulfate [Albuterol Inhaler] 1 puff IH Q4H PRN #1 inhaler 07/19/18 [Rx] Amoxicillin/Clavulanate [Augmentin] 875 mg PO BIDWM 3 Days #6 tablet 04/05/19 [Rx] GuaiFENesin/Dextromethorphan [Robitussin/Dm] 10 ml PO Q6HR PRN #30 udc 07/19/18 [Rx] Nicotine Patch [Nicoderm] 21 mg TD DAILY PRN #21 patch.[email or web address] 07/19/18 [Rx] predniSONE [PredniSONE] 40 mg PO DAILY #12 tablet 07/19/18 [Rx] Allergies/Adverse Reactions: Allergy/AdvReac Type Severity Reaction Status Date / Time No Known Allergies Allergy Verified 07/16/18 17:31 Date of admission: 07/18/18 08:24 Primary care physician: PCP NONE Consults: 07/16/18 16:13 Consult to Pulmonology [CONS] Routine Consulting Provider: [facility] Reason for Consult: Hypoxia/ etiology unknown Time Notified: 16:14 Call Completed: Yes 07/17/18 16:59 Consult to Nurse Navigator [CONS] Routine Comment: copd/pneumonia - Constitutional Vitals: Temp Pulse Resp BP Pulse Ox 97.6 F 70 19 130/79 95 07/19/18 07:36 07/19/18 07:36 07/19/18 07:42 07/19/18 07:36 07/19/18 10:31 General appearance: Present: cooperative, A&O X 3, pleasant, answers questions appropriately Exam: General: Patient is alert, no acute distress, oriented x 3. Morbidly obese ENT: Mucous membranes moist Respiratory: min bilateral wheezes Cardiovascular: Regular rate and rhythm. s1 and s2 normal No clicks, rubs, gallops, or murmurs. No pedal edema Abdomen: Abdomen is soft, nontender. Bowel sounds are present Musculoskeletal: Spontaneously moving all extremities Skin: warm, dry, intact. Neuro: no focal deficits - Patient Status Disposition: Home, Self-Care Condition: Fair Functional capacity at discharge: independent ambulation Overall status at discharge: patient is progressing back to baseline - Discharge Instructions Instructions: Acute Respiratory Distress Syndrome (DC), Chronic Obstructive Pulmonary Disease (DC), Pneumonia (DC) Follow Up With: NONE,PCP [Primary Care Provider] - Emory Sue MD [Partnered Physician] - (Web request 07/18/2018) Additional Instructions: Complete a total of 7 days of abx and steroid taper as prescribed Follow up with pulm as outpatient - Diet and Activity Activity: resume usual activities as tolerated Diet: regular diet
[2018-07-19 11:34] VITALS: BP 173/79
== END 2018-07-19 14:09 | disposition home or self-care (01) | DRG 193 ==
LOC: 2NNU → SUATTDRO 07-18 08:24 → 2ANU 07-18 10:43
PROVIDERS: ADMIT Internal Medicine Nephrology; ATTEND Internal Medicine